=== PATIENT | female | born 1980 | race Caucasian/White ===

== ENCOUNTER 2017-06-22 02:22 | Observation (INO) | payer OTHER ==
[2017-06-22] MEDS ORDERED: DIPH,PERTUS(ACELL)TETVAC-LF 0.5 ML VIAL IM ONE (02:26)
[2017-06-22 02:52] LABS: Partial Thromboplastin Time 24.6 sec (22.0-30.0); Prothrombin Time 10.6 sec (9.0-12.0)
[2017-06-22 02:54] LABS: ALT 39 U/L (9-52); AST 38 U/L (14-36); Alkaline Phosphatase 38 U/L (38-126); Amylase 44 U/L (30-110); Anion Gap 15 mmol/L; Blood Urea Nitrogen 8 mg/dL (7-17); Calcium 9.2 mg/dL (8.4-10.2); Carbon Dioxide 21 mmol/L (22-30); Chloride 105 mmol/L (98-107); Glucose 89 mg/dL (74-99); Non-African American GFR(MDRD) >60 (>60 ml/min/1.73 sqM); Potassium 3.4 mmol/L (3.5-5.1); Sodium 141 mmol/L (137-145); Total Bilirubin 0.5 mg/dL (0.2-1.3); Total Protein 7.7 g/dL (6.3-8.2)
[2017-06-22 02:56] LABS: Alcohol 233 mg/dL
[2017-06-22 02:58] LABS: Creatine Kinase 216 U/L (30-135)
[2017-06-22 03:02] LABS: Basophils # (A) 0.1 k/uL (0-0.2); Basophils % (A) 1 %; CHCM 36.2; Eosinophils # (A) 0.1 k/uL (0-0.7); Eosinophils % (A) 1 %; HCT 41.1 % (34.0-46.0); HDW 2.34; HGB 14.4 gm/dL (11.4-16.0); Luc % (Auto) 3; Lymphocytes % (A) 44 %; MCHC 35.1 g/dL (31.0-37.0); MCV 96.8 fL (80.0-100.0); Mean Platelet Volume 6.7; Monocytes # (A) 0.4 k/uL (0-1.0); Monocytes % (A) 5 %; Neutrophils # (A) 4.1 k/uL (1.3-7.7); Neutrophils % (A) 45 %; RBC 4.25 m/uL (3.80-5.40); RDW 12.4 % (11.5-15.5); WBC 9.1 k/uL (3.8-10.6); WBC (Perox) 8.91
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
[2017-06-22] MEDS ORDERED: ceFAZolin 1,000 MG in DEXTROSE/WATER 1 50ML.BAG IVPB STA (03:07)
[2017-06-22] MEDS ORDERED: MORPHINE SULFATE 4 MG/ML SYRINGE IV STA ×2 (03:09→05:05)
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
[2017-06-22 03:11] LABS: Creatine Kinase MB 1.4 ng/mL (0.0-2.4); Troponin I <0.012 ng/mL (0.000-0.034)
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
--- NOTE | 2017-06-22 03:43 | CT ---
EXAM: CT Maxillofacial Without Intravenous Contrast CLINICAL HISTORY: Trauma TECHNIQUE: Axial computed tomography images of the face without intravenous contrast. CTDI is 32.70 mGy and DLP is 619.30 mGy-cm. This CT exam was performed using one or more of the following dose reduction techniques: automated exposure control, adjustment of the mA and/or kV according to patient size, and/or use of iterative reconstruction technique. COMPARISON: None FINDINGS: Bones/joints: Fracture of the left anterior medial orbital wall. Soft tissues: Periorbital soft tissue swelling. Orbits: See above. Otherwise unremarkable. Sinuses: Mild mucosal thickening of the maxillary sinuses and ethmoid air cells. No air-fluid levels. IMPRESSION: Fracture of the left anterior medial orbital wall.
--- NOTE | 2017-06-22 03:49 | CT ---
EXAM: CT Head Without Intravenous Contrast CLINICAL HISTORY: Trauma TECHNIQUE: Axial computed tomography images of the head/brain without intravenous contrast. CTDI is 58.00 mGy and DLP is 1092.80 mGy-cm. This CT exam was performed using one or more of the following dose reduction techniques: automated exposure control, adjustment of the mA and/or kV according to patient size, and/or use of iterative reconstruction technique. Coronal and sagittal reformatted images were created and reviewed. COMPARISON: None FINDINGS: Brain: Unremarkable. No hemorrhage. No significant white matter disease. No edema. Ventricles: Unremarkable. No ventriculomegaly. Bones/joints: Please refer to facial bone CT report. No acute skull fracture. Soft tissues: Unremarkable. Sinuses: Mild mucosal thickening of the ethmoid air cells. No acute sinusitis. Mastoid air cells: Unremarkable as visualized. No mastoid effusion. IMPRESSION: No acute intracranial abnormality. EXAM: CT Cervical Spine Without Intravenous Contrast CLINICAL HISTORY: Trauma TECHNIQUE: Axial computed tomography images of the cervical spine without intravenous contrast. CTDI is 14.80 mGy and DLP is 351.30 mGy-cm. This CT exam was performed using one or more of the following dose reduction techniques: automated exposure control, adjustment of the mA and/or kV according to patient size, and/or use of iterative reconstruction technique. Coronal and sagittal reformatted images were created and reviewed. COMPARISON: None FINDINGS: Vertebrae: Unremarkable. No acute fracture. Discs/spinal canal/neural foramina: Disc osteophyte complex seen at C5/C6 as well as at C4/C5 and C6/C7 indenting the thecal sac. No acute findings. No spinal canal stenosis. Soft tissues: Unremarkable. Lung apices: Unremarkable as visualized. IMPRESSION: Unremarkable cervical spine CT.
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
[2017-06-22 04:45] LABS: Appearance,Urine Clear (Clear); Bilirubin,Urine Negative (Negative); Glucose,Urine (UA) Negative (Negative); Ketones,Urine Negative (Negative); Leukocyte Esterase,Urine Negative (Negative); Nitrite,Urine Negative (Negative); Protein,Urine Negative (Negative); Specific Gravity,Urine 1.017 (1.001-1.035); UA Billing (MACRO vs. MICRO) CHEM; Urobilinogen,Urine <2.0 mg/dL (<2.0)
[2017-06-22] MEDS ORDERED: ONDANSETRON 4 MG/2 ML VIAL IVP PRN (05:20)
[2017-06-22] MEDS ORDERED: NALOXONE 0.4 MG/ML 1 ML VIAL IV PRN (05:20)
--- NOTE | 2017-06-22 05:59 | XR ---
EXAM: XR Right Elbow Complete, 3 Views CLINICAL HISTORY: Reason: Pain TECHNIQUE: Frontal, lateral and oblique views of the right elbow. COMPARISON: No relevant prior studies available. FINDINGS: Bones/joints: Unremarkable. No acute fracture. No dislocation. Soft tissues: Unremarkable. IMPRESSION: Unremarkable right elbow x-rays.
[2017-06-22] MEDS: MORPHINE SULFATE 4 MG/ML SYRINGE IV PRN ×4 (08:40→22:45)
[2017-06-22] MEDS: FAMOTIDINE 20 MG TAB PO SCH ×2 (08:41→19:54)
[2017-06-22 08:53] VITALS: BMI 18.9
[2017-06-22] MEDS ORDERED: RX INFO: IV CONTRAST WAS GIVEN 1 EACH MISC MISCELLANE PRN (09:40)
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
[2017-06-22] MEDS: NICOTINE 21MG/24HR PATCH TRANSDERM SCH (10:58)
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
[2017-06-22] MEDS: CEPHALEXIN 500 MG CAP PO SCH ×3 (14:45→19:54)
[2017-06-23] MEDS: MORPHINE SULFATE 4 MG/ML SYRINGE IV PRN (02:50)
[2017-06-23 07:09] LABS: Basophils % (A) 0 %; CH 34.3; CHCM 34.8; Eosinophils # (A) 0.3 k/uL (0-0.7); Eosinophils % (A) 4 %; HCT 37.2 % (34.0-46.0); HGB 12.8 gm/dL (11.4-16.0); Luc # (Auto) 0.15; Luc % (Auto) 2; Lymphocytes # (A) 1.7 k/uL (1.0-4.8); Lymphocytes % (A) 25 %; MCH 33.9 pg (25.0-35.0); MCHC 34.3 g/dL (31.0-37.0); MCV 98.8 fL (80.0-100.0); Mean Platelet Volume 6.6; Monocytes # (A) 0.5 k/uL (0-1.0); Monocytes % (A) 7 %; Neutrophils # (A) 4.3 k/uL (1.3-7.7); Neutrophils % (A) 62 %; RBC 3.77 m/uL (3.80-5.40); RDW 11.8 % (11.5-15.5); WBC 6.9 k/uL (3.8-10.6); WBC (Perox) 6.89
[2017-06-23 07:19] LABS: ALT 35 U/L (9-52); AST 32 U/L (14-36); Alkaline Phosphatase 37 U/L (38-126); Anion Gap 9 mmol/L; Blood Urea Nitrogen 6 mg/dL (7-17); Carbon Dioxide 25 mmol/L (22-30); Chloride 103 mmol/L (98-107); Glucose 69 mg/dL (74-99); Non-African American GFR(MDRD) >60 (>60 ml/min/1.73 sqM); Sodium 137 mmol/L (137-145); Total Protein 6.5 g/dL (6.3-8.2)
[2017-06-23 08:16] LABS: Glucose,Whole Blood 92 mg/dL (75-99)
[2017-06-23 08:42] VITALS: BP 115/72; PULSE 88; RESP 16; TEMP 98.3
[2017-06-23] MEDS: FAMOTIDINE 20 MG TAB PO SCH (08:45)
[2017-06-23] MEDS: NICOTINE 21MG/24HR PATCH TRANSDERM SCH ×2 (08:45→10:16)
[2017-06-23] MEDS: CEPHALEXIN 500 MG CAP PO SCH (08:45)
--- NOTE | 2017-06-23 08:49 | CT ---
EXAMINATION TYPE: CT abdomen pelvis w con DATE OF EXAM: 06/23/2017 HISTORY: Patient has no abdominal/pelvic complaints at time of study. Follow up study for possible l iver contusion seen on prior. CT DLP: 319.8mGycm Automated Exposure Control for Dose Reduction was Utilized. CONTRAST: CT scan of the abdomen and pelvis is performed with IV Contrast, patient injected with 100 mL of Omni paque 300. COMPARISON: None. FINDINGS: LUNG BASES: Pleural parenchymal scarring is seen in the visualized portions of the lungs. LIVER/GB: Wedge-shaped area of hypoattenuation is seen in segment IVb near the fissure for the ligame ntum teres. Morphologically normal-appearing hepatic vasculature course through this area of hypoatte nuation. There is no subcapsular hematoma or fat stranding in the perihepatic fat. No capsular retrac tion, no alteration of the normal hepatic morphology, and no capsule surrounding the area of hypoatte nuation. No surrounding free fluid or inflammatory changes of the lateral conal fascia. Although smal l volume free fluid is seen within the dependent pelvis, it is simple in attenuation in the most depe ndent aspect, and therefore favored to be physiologic. High density is seen within the gallbladder lumen, representing vicarious excretion of contrast. PANCREAS: No significant abnormality is seen. SPLEEN: No significant abnormality is seen. ADRENALS: No significant abnormality is seen. KIDNEYS: No significant abnormality is seen. BOWEL: No significant abnormality is seen. UTERUS/ADNEXA: No gross abnormality seen. Crenulated ovarian follicles are noted. LYMPH NODES: No greater than 1cm abdominal or pelvic lymph nodes are appreciated. OSSEOUS STRUCTURES: No significant abnormality is seen. OTHER: No significant additional abnormality is seen. IMPRESSION: 1. The previously questioned hepatic laceration is most compatible with focal fatty infiltration/foca l hepatic steatosis with no CT sequela of hepatic trauma identified. 2. Small volume simple free fluid, favored to be physiologic in nature.
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
== END 2017-06-23 10:13 | disposition home or self-care (01) ==
LOC: EC 02:22 → 3OBS 05:23
PROVIDERS: ADMIT Surgery; ATTEND Surgery
DX: S62.337A Displaced fracture of neck of fifth metacarpal bone, left hand, initial encounter for closed fracture (principal); S02.82XA Fracture of other specified skull and facial bones, left side, initial encounter for closed fracture; S36.112A Contusion of liver, initial encounter; S60.512A Abrasion of left hand, initial encounter; S80.212A Abrasion, left knee, initial encounter; S40.812A Abrasion of left upper arm, initial encounter; F17.210 Nicotine dependence, cigarettes, uncomplicated; V29.3XXA Motorcycle rider (driver) (passenger) injured in unspecified nontraffic accident, initial encounter; Y90.7 Blood alcohol level of 200-239 mg/100 ml; Z79.899 Other long term (current) drug therapy; M25.552 Pain in left hip; Z23 Encounter for immunization
CPT/HCPCS: 29125 ×2; 96376 ×4; 90471 ×2; 96365 ×2; 96375 ×2; 99285; 36415; 93005; 86900; 86901; 80053 ×2; 82150; 82550; 82553; 83605; 83690; 84484; 85025 ×2; 85610; 85730; 86850; 82271; 81003; 80306; 80320; 71010; 72170; 73080; 73090; 73130; 72125; 70486; 70450; 74177 ×2; 90715; G0378 ×2; S4990; J2270 ×2; Q9967 ×2; J0690